=== PATIENT | female | born 1965 | race Caucasian/White ===

== ENCOUNTER 2016-11-17 19:50 | Emergency (ER) | payer OTHER ==
[~2016-11-17] VITALS: Ht 170.2 cm; Wt 81.0 kg
[~2016-11-17 19:50] MED LIST: MORPHINE SULFAT15 MG PO; NAPROSYN500 MG PO; NORCO 5/3251 TABLET PO; OXYCODONE15 MG PO; PEN-VEE K,VEET500 MG PO
[2016-11-17] MEDS ORDERED: KEFLEX500 MG PO (22:50)
[2016-11-17] MEDS ORDERED: BACTRIM,SEPT1 TABLET PO (22:50)
[2016-11-17 22:58] VITALS: BP 155/79
== END 2016-11-17 23:01 | disposition home or self-care (01) ==
LOC: EME 19:50
DX: L03.115 Cellulitis of right lower limb (principal); F17.200 Nicotine dependence, unspecified, uncomplicated
CPT/HCPCS: 99281; 99284; J0696; J1885; J7030; J7050